=== PATIENT | female | born 1955 | race Caucasian/White ===

== ENCOUNTER 2020-01-23 11:55 | Inpatient (IN) | payer MEDICARE, SELFPAY ==
[2020-01-23] VITALS (28 sets, daily range): BP systolic 114–163; BP diastolic 62–103; PULSE 104–129; RESP 17–39; TEMP 35.9–36.5; O2SAT 78–100; BMI 24.5
--- NOTE | ~2020-01-23 | XR_ITS ---
EXAMINATION: XR chest 2V DATE: 01/25/2020 12:55 INDICATION: Right pleural effusion status post thoracentesis. TECHNIQUE: Frontal and lateral views of the chest were obtained. COMPARISON: Chest single view 01/23/2020 FINDINGS: There is a moderate-sized loculated right pleural effusion. There is mild scarring at right lung apex. There are airspace opacities in peripheral right mid and lower lung zones. No pneumothora x. The heart size is normal. There are changes of anterior fusion procedure in cervical spine. There are surgical clips in right neck. There is a calcified mass in right breast, likely benign. IMPRESSION: 1. Moderate-sized loculated right pleural effusion with improvement status post thoracentesis. 2. Peripheral airspace opacities in right mid and lower lung zones with interval improvement, consist ent with atelectasis versus pneumonia. Reviewed, dictated and finalized at location A. IMPRESSION: 1. Moderate-sized loculated right pleural effusion with improvement status post thoracentesis. 2. Peripheral airspace opacities in right mid and lower lung zones with interva l improvement, consistent with atelectasis versus pneumonia.
--- NOTE | ~2020-01-23 | XR_ITS ---
EXAMINATION: XR chest 1V portable EXAM DATE: 01/23/2020 17:00 INDICATION: Large right pleural effusion. Postthoracentesis. TECHNIQUE: Portable AP frontal chest x-ray was obtained. Comparison is made to prior examination from 01/23/2020. FINDINGS: There is a moderate-sized right-sided pleural effusion, improvement compared to exam earlie r same date. There is probable collapse of the right middle and lower lobes. The right upper lobe isaias ears better aerated. Left lung is clear. There is aortic arteriosclerosis. There is no pneumothorax s uspected. Cardiomediastinal silhouette is normal. There are mild bony degenerative changes. Cervical fusion hardware. IMPRESSION: 1. No evidence postprocedure pneumothorax. 2. Improvement in the moderate sized right pleural effusion with better aeration of right upper lobe . 3. Probable collapse of right middle and lower lobes. Reviewed, dictated and finalized at location A. IMPRESSION: 1. No evidence postprocedure pneumothorax. 2. Improvement in the moderate sized right pleural effusion with better aerati on of right upper lobe. 3. Probable collapse of right middle and lower lobes.
--- NOTE | ~2020-01-23 | US_ITS ---
EXAMINATION: US thoracentesis DATE: 01/25/2020 13:00 INDICATION: pleural effusion TECHNIQUE: The procedure and its risks, benefits, and alternatives were discussed with the patient. P otential risks discussed included bleeding, infection, and pneumothorax. The patient understood the r isks and agreed to proceed. The skin was prepped and draped in sterile fashion. 1% lidocaine was used for local anesthesia. Under ultrasound guidance, a 5 Fr catheter with trochar was advanced into the right pleural effusion. Fluid was aspirated. The catheter was removed, and a dressing was applied. Th ere were no immediate complications. FINDINGS: Ultrasound images demonstrate a right pleural effusion and the catheter within the fluid. IMPRESSION: 1. Successful ultrasound-guided thoracentesis yielding 1000 mL of serosanguineous fluid. Reviewed, dictated and finalized at location A. IMPRESSION: 1. Successful ultrasound-guided thoracentesis yielding 1000 mL of serosanguine ous fluid.
--- NOTE | ~2020-01-23 | US_ITS ---
EXAMINATION: US thoracentesis EXAM DATE: 01/23/2020 16:48 INDICATION: Right-sided thoracentesis. Large pleural effusion. TECHNIQUE: Timeout procedure was performed. I discussed the procedure, its risks and benefits with [facility] patient. Potential risks discussed included bleeding, infection, and pneumothorax which could poten tially require chest tube. Alternatives were also discussed. We discussed patient being on Plavix, rockwell d not taken it yesterday or today. I also discussed with Jody San PA-C, who discussed with [facility] junior systems administrator. The patient understood the risks, was given chance to ask questions, and agreed to p roceed. The skin was prepped and draped in sterile fashion. 1% lidocaine was used for local anesthesia. Under ultrasound guidance, a 5 Fr catheter with trochar was advanced into the right pleural effusion. Flui d was aspirated. After the 1 L was removed and a second jar hooked up, patient wanted to stop. She was not communicati ve about the reason or what was causing her discomfort. Pulse oximetry decreased to in 70s and her bl ood pressure increased and she was placed on 6 L oxygen. Then she became concerned about a missing pi nk ring, but otherwise did not appear distressed. We requested for her to relax and vitals then taken again, blood pressure 160/90 and pulse of 114, pulse ox is 94%. She was brought back to the emergenc y room and for postthoracentesis portable chest x-ray. Uncertain whether or not this could have been anxiety related event. FINDINGS: Ultrasound images demonstrate a right pleural effusion. IMPRESSION: Successful ultrasound-guided right-sided thoracentesis yielding approximately 1.3 L of dark yellow fluid after which procedure was stopped at patient's request as described above. Reviewed, dictated and finalized at location A. IMPRESSION: Successful ultrasound-guided right-sided thoracentesis yielding a pproximately 1.3 L of dark yellow fluid after which procedure was stopped at quirino nelson's request as described above.
--- NOTE | ~2020-01-23 | XR_ITS ---
EXAMINATION: XR chest 2V DATE: 01/27/2020 13:56 INDICATION: Right pleural effusion status post thoracentesis. TECHNIQUE: Frontal and lateral views of the chest were obtained. COMPARISON: Chest single view 01/26/2020 FINDINGS: There is a small loculated right pleural effusion. There are airspace opacities right mid a nd lower lung zones. No pneumothorax. The heart size is normal. There is a calcified mass in right br east, likely benign. There are changes of anterior fusion procedure in cervical spine. There are surg ical clips in right neck. IMPRESSION: 1. Small right pleural effusion with improvement status post thoracentesis. 2. Stable airspace opacities in right mid and lower lung zones, consistent with atelectasis versus pn eumonia. Reviewed, dictated and finalized at location A. IMPRESSION: 1. Small right pleural effusion with improvement status post thoracentesis. 2. Stable airspace opacities in right mid and lower lung zones, consistent with atelectasis versus pneumonia.
--- NOTE | ~2020-01-23 | XR_ITS ---
EXAMINATION: XR chest 2V DATE: 01/23/2020 13:23 INDICATION: Shortness of breath. TECHNIQUE: Frontal and lateral views of the chest were obtained. COMPARISON: Chest single view 07/26/2019 FINDINGS: There is a large right pleural effusion. There is near complete opacification of right neville thorax. There is mild scarring at left lung apex. There is a calcified mass in right anterior chest w all, likely benign. There are changes of anterior fusion procedure in cervical spine. There are surgi samia clips in right neck. IMPRESSION: 1. New large right pleural effusion. Reviewed, dictated and finalized at location A.
--- NOTE | ~2020-01-23 | XR_ITS ---
XR chest 1V portable DATE: 01/26/2020 10:22 INDICATION: Right pleural effusion follow-up TECHNIQUE: Portable upright AP chest on 01/26/2020 at 1014 hours COMPARISON: 01/25/2020 AP and lateral chest FINDINGS: There is no significant change of moderate right pleural effusion and right mid and lower l douglas infiltrate and/atelectasis since 01/25/2020. No pneumothorax. Aortic calcification. Normal heart size. No pulmonary vascular congestion. No left pleural effusion. The left lung is clear. Surgical clips overlie the lower right cervical area. Status post anterior lower cervical spine surgi samia fusion. Mild thoracic and lumbar scoliosis. Prominent calcifications are noted overlying the lower lateral right rib cage. Diffuse osteopenia. IMPRESSION: Stable moderate right pleural effusion and right mid and lower lung infiltrate and/or ate lectasis Reviewed, dictated and finalized at location A. IMPRESSION: Stable moderate right pleural effusion and right mid and lower lung infiltrate and/or atelectasis
--- NOTE | ~2020-01-23 | CT_ITS ---
EXAMINATION: CTA chest PE protocol DATE: 01/23/2020 13:48 INDICATION: Shortness of breath and elevated d-dimer TECHNIQUE: Computed tomography angiography (CTA) of the chest was performed with 100 mL Omnipaque-350 intravenous contrast timed to evaluate the pulmonary arteries. Coronal maximum intensity projection 3D-reconstructions were created by the technologist. The dose-length product (DLP) was 186.03 mGy-cm. Automated exposure control and iterative reconstruction technique were employed. COMPARISON: None. FINDINGS: The pulmonary arteries are well-opacified. There is no pulmonary embolism. There is a large right pleural effusion with atelectasis of much of the right lung. Pulmonary arteries in the affecte d segments of the lung are attenuated but do not demonstrate thrombosis. The heart size is normal. Th ere are no pathologically enlarged thoracic lymph nodes. No pneumothorax is identified. The left lung is clear. There is mild thoracic spondylosis. Changes of anterior fusion procedure are noted in the lower cervical spine. Calcifications in the right breast are consistent with treatment for breast can cer. IMPRESSION: 1. No pulmonary embolism. 2. Large right pleural effusion with widespread atelectasis throughout the right lung. Reviewed, dictated and finalized at location A. IMPRESSION: 1. No pulmonary embolism. 2. Large right pleural effusion with widespread atelectasis throughout the righ t lung.
--- NOTE | ~2020-01-23 | US_ITS ---
EXAMINATION: US thoracentesis DATE: 01/27/2020 15:42 INDICATION: pleural effusion TECHNIQUE: The procedure and its risks, benefits, and alternatives were discussed with the patient. P otential risks discussed included bleeding, infection, and pneumothorax. The patient understood the r isks and agreed to proceed. The skin was prepped and draped in sterile fashion. 1% lidocaine was used for local anesthesia. Under ultrasound guidance, a 5 Fr catheter with trochar was advanced into the right pleural effusion. Fluid was aspirated. The catheter was removed, and a dressing was applied. Th ere were no immediate complications. FINDINGS: Ultrasound images demonstrate a right pleural effusion and the catheter within the fluid. IMPRESSION: 1. Successful ultrasound-guided thoracentesis yielding 1000 mL of red fluid. Reviewed, dictated and finalized at location A.
--- NOTE | 2020-01-23 12:16 | ECG_ITS ---
Measurements Intervals [place] Rate: 122 P: 81 MS: 155 QRS: 52 QRSD: 86 T: 38 QT: 309 QTc: 441 Interpretive Statements SINUS TACHYCARDIA DELAYED PRECORDIAL R/S TRANSITION LOW QRS VOLTAGE IN PRECORDIAL LEADS BORDERLINE T WAVE ABNORMALITY- INF/LAT LEADS BASELINE ARTIFACT- III, AVR, AVL, AVF, V2, V5-V6 ABNORMAL ECG Electronically Signed On 01-23-2020 14:14:26 CDT by Camron Caballero D.O.
--- NOTE | 2020-01-23 12:33 | ED.SOB ---
HPI - SOB/Dyspnea General Chief Complaint: Shortness of Breath/Dyspnea <ALIDA Amin Last Filed: 01/23/20 16:51> Stated Complaint: sob <ALIDA Amin Last Filed: 01/23/20 16:51> Time Seen by Provider: 01/23/20 12:20 <ALIDA Amin Last Filed: 01/23/20 16:51> Source: patient <ALIDA Amin Last Filed: 01/23/20 16:51> Mode of arrival: wheelchair <ALIDA Amin Last Filed: 01/23/20 16:51> Limitations: no limitations <ALIDA Amin Last Filed: 01/23/20 16:51> History of Present Illness HPI Narrative: This is a 64 year old female that presents to the ER for shortness of breath x 3 weeks. Reports she was seen by her tug captain and started on prednisone and an antibiotic. Reports she finished this one week ago with little relief. Also reports a nonproductive cough. Reports some right sided back pain that is worse with breathing. Denies fever, sore throat or chest pain. <ALIDA Amin Last Filed: 01/23/20 16:51> Related Data Home Medications: Home Medications Medication Instructions Recorded Confirmed clopidogrel [Plavix] 75 mg PO EVERY OTHER DAY 07/20/19 01/23/20 hydrocodone-acetaminophen 1 tablet PO Q6H PRN 07/20/19 01/23/20 hydroxyzine HCl 25 mg PO TID PRN 07/20/19 01/23/20 propranolol 10 mg PO Q12H 07/20/19 01/23/20 spironolactone 100 mg PO QAM 07/20/19 01/23/20 baclofen 20 mg PO TID PRN 01/23/20 01/23/20 <ALIDA Amin Last Filed: 01/23/20 16:51> Allergies/Adverse Reactions: Allergies Allergy/AdvReac Type Severity Reaction Status Date / Time adhesive tape Allergy Unknown BLISTERS Verified 01/23/20 12:06 latex Allergy Blister Verified 01/23/20 12:06 <Jody San PA-C - Last Filed: 01/23/20 16:51> Review of Systems Review of Systems: Narrative: CONSTITUTIONAL: Denies fever ENT: Denies rhinorrhea, congestion, sore throat CARDIOVASCULAR: Denies chest pain RESPIRATORY: Reports cough and dyspnea. <Jody San PA-C - Last Filed: 01/23/20 16:51> All systems reviewed & are unremarkable except as noted in HPI and below <Jody San PA-C - Last Filed: 01/23/20 16:51> PMFSH Past Medical History Medical History: Medical History (Updated 01/23/20 @ 16:50 by Jody San PA-C) Anxiety Arthritis Back pain Back pain Breast cancer, left Cirrhosis Depression GI bleed Hepatitis C History of angina History of cancer chemotherapy Hx of radiation therapy Hyperlipemia Hypertension Left wrist fracture Skin cancer <Jody San PA-C - Last Filed: 01/23/20 16:51> Surgical History Surgical History: Surgical History History of cardiac catheterization History of hysterectomy History of tonsillectomy Hx of cervical spine surgery <Jody San PA-C - Last Filed: 01/23/20 16:51> Social History Social History: Social History (Updated 01/23/20 @ 11:31 by Faye Cruz) Smoking packs per day: 0.5 Smoking cigarettes per day: 10.0 Years smoked: 50 Smoking pack-years: 25.00 Smoking status: Current every day smoker Tobacco type: cigarettes Second hand tobacco smoke exposure: Yes Additional smoking assessment comments: Smoking exposure Alcohol intake: never Substance use: never Substance use type: does not use Gender identity (if verbalized by the patient): Female Spiritual care concerns: No Agree to blood products: Yes <Jody San PA-C - Last Filed: 01/23/20 16:51> Exam Narrative: Exam Narrative: GENERAL: Well-appearing, well-nourished, and in no acute distress. HEAD: Normocephalic, atraumatic. EYES: EOMI. ENT: Nares clear, no rhinorrhea or epistaxis. Mucous membranes moist. Oropharynx without tonsillar hypertrophy exudate or other lesions. Bilateral TMs pearly galvan non-bulging NECK: Supple. No adenopathy or masses. CHEST: No respiratory distress. M
[2020-01-23] MEDS: methylPREDNISolone SOD SUCC 125 MG VIAL IV PUSH (12:42)
[2020-01-23 12:57] LABS: Basophils Absolute Auto 0.1 K/mm3 (0.0-0.1); Basophils Percent Auto 0.7 % (0.2-1.2); Eosinophils Absolute Auto 0.1 K/mm3 (0-0.3); Eosinophils Percent Auto 0.7 % (0-4.4); Hematocrit 42.5 % (37.0-47.0); Hemoglobin 14.2 g/dL (12.0-15.0); Immature Granulocyte Absolute 0.11 K/mm3 (0.00-0.031); Immature Granulocyte Percent A 0.8 % (0-0.5); Lymphocytes Absolute Auto 1.25 K/mm3 (0.9-3.2); Mean Corpuscular HGB Conc 33.4 g/dl (32-36); Mean Corpuscular Hemoglobin 29.1 pg (26-34); Mean Corpuscular Volume 87.1 fl (80-100); Mean Platelet Volume 8.7 fl (7.4-10.4); Monocytes Absolute Auto 1.1 K/mm3 (0.1-0.6); Monocytes Percent Auto 7.5 % (2.6-8.5); Neutrophils Absolute Auto 11.3 K/mm3 (1.3-6.7); Neutrophils Percent Auto 81.3 % (45.5-73.1); Platelet Count Result 368 k/mm3 (150-375); Red Blood Count 4.88 M/mm3 (4.2-5.4); Red Cell Distribution Width 12.9 % (11.5-14.5); White Blood Count 13.9 K/mm3 (4.5-10.0)
[2020-01-23 13:01] LABS: Alveolar/Arterial O2 Gradient 43.4 mmHg; Base Excess ABG -2.3 mEq/l (+/-2.0); Carboxyhemoglobin 2.4 % THb (0-2.0); Device NASAL CANNULA; Fractional Inspired Oxygen 24 %; HCO3 ABG 21.2 mEq/l (22.0-26.0); Methemoglobin ABG 0.3 %THb (0-1.5); Oxygen Content ABG 18.4 %vol (16.0-22.0); Oxyhemoglobin 93.8 % THb (90.0-100.0); PO2 ABG 88.5 mmHg (80.0-100.0); PO2 FiO2 Ratio Arterial Blood 3.69 %; Reduced Hemoglobin 3.5 %THb (0-5.0); Site Drawn LEFT BRACHIAL; Total Hemoglobin 13.9 g/dL (12.0-18.0); pH ABG 7.426 (7.350-7.450)
--- NOTE | 2020-01-23 13:05 | PCRCNOTE ---
PT. DID NOT WANT THE INHALER; STATES SHE JUST USED HERS. R.N. AND THE P.Matthew. GUY QURESHI BOTH AWARE.
[2020-01-23 13:13] LABS: D Dimer 2.31 ug/mL (<0.48)
[2020-01-23 13:15] LABS: Alanine Aminotransferase 10 U/L (4-35); Albumin Level 3.9 g/dL (3.5-5.1); Alkaline Phosphatase 132 U/L (38-126); Aspartate Amino Transferase 22 U/L (14-36); Bilirubin,Total 0.5 mg/dL (0.2-1.3); Blood Urea Nitrogen 29 mg/dL (7-17); Calcium 9.8 mg/dL (8.4-10.2); Carbon Dioxide 26 mmol/L (22-30); Chloride 99 mmol/L (98-107); Estimated CRCL calculation 46 ml/min; Estimated Glomerular Filt Rate > 60; Glucose 108 mg/dL (65-105); Lactate Dehydrogenase 501 U/L (313-618); Potassium 4.6 mmol/L (3.4-5.0); Sodium 133 mmol/L (137-145)
[2020-01-23 13:32] LABS: CRP 17.7 mg/dL (<1.0)
[2020-01-23 13:44] LABS: Lactic Acid Reflex 1.9 mmol/L (0.7-2.1)
[2020-01-23 15:23] LABS: Partial Thromboplastin Time 33.7 SECONDS (22.3-36.8); Prothrombin Time 12.7 Seconds (11.1-14.7)
--- NOTE | 2020-01-23 15:38 | PC.NURSE ---
Pt resting with eyes closed and even rise and fall of chest with no distress noted.
[2020-01-23 16:30] LABS: pH Pleural Fluid 7.213 (7.210-7.500)
[2020-01-23 18:00] LABS: Pleural fluid source Pleural fluid
[2020-01-23 18:01] LABS: Appearance Pleural Fluid Hazy (Clear); Color Pleural Fluid Red (Colorless)
[2020-01-23 18:02] LABS: Lymphocytes Pleural Fluid 91 %; Macrophages Pleural Fluid 3 %; Neutrophils Pleural Fluid 6 % (0-25); Nucleated Cell Pleural Fluid 1554 /uL (0-1000); RBC Pleural Fluid 16605 /uL (0-0)
--- NOTE | 2020-01-23 18:57 | ADMGEN ---
This patient, Beverley Luna, was admitted to 2 Medical Room 259-01. Patient/family oriented to hospital policies and general routines including ID bracelet, bed and alarms, visiting hours, pain management, procedures, bathroom and other care routines, personal items, smoking policy, room service/diet, and visiting hours. Valuables list has been completed. Information on how to activate the Rapid Response Team has been discussed. Patient/Family are encouraged to report perceived risks to care and to ask questions if they do not understand what they are told or what they should do.
--- NOTE | 2020-01-23 19:30 | PC.NURSE ---
Home medications received from patient. Hydrocodone counted with Anh Coronel RN. Home medications locked in safe. Belonging sheet updated.
--- NOTE | 2020-01-23 21:32 | PM.IMHP ---
H&P: HPI History of Present Illness Chief complaint: Right pleural effusion Narrative: Beverley Luna is a 64 year old female who has a history of COPD. She has been following with her armed custom protection officer. It looks like her last office visit the armed custom protection officer was on 01/06/2020. The patient has been short of breath for 3 weeks. She was started on prednisone and antibiotics. She finished her antibiotics and prednisone without any relief. She has a nonproductive cough. She had some right-sided pain in her back was worse with breathing. Pulmonology has been consulted. The patient was having tachypnea and tachycardia upon arrival to the emergency room. Her O2 saturations were in the high 80s and low 90s on room air. She was placed on oxygen 2 L per nasal cannula and had some improvement. She has leukocytosis to 13.9 however the patient recently finished of steroids. CRP is 17.7. D-dimer was elevated so CTA chest was obtained. There was no pulmonary embolism. There is a large right pleural effusion and ervin bed atelectasis throughout the right lung. Thoracentesis was was performed after 1 L was removed and a 2nd are was hooked up the patient wanted to stop. The patient stated was causing her some discomfort. Her oxygen levels done in the 70s and her blood pressure crease she is placed on 6 L per nasal cannula. She was concerned about missing her peeing bring it. Also her home medications were locked up and she was not happy about that. Post thoracentesis there was no evidence of postprocedure pneumothorax. Improvement in the moderate size right pleural effusion with better aeration of right upper lobe. Probable collapse of right middle and lower lobes. When I went to see the patient she was very belligerent and cussing at me. She stated that enough people have already questioned her and obtained all the information. She has already told them about her health history and does not feel like she needs to discuss it again. She said that she was sleeping finally and that she did not want to be disturbed. She allowed me to physically environmental geologist but with the blanket over her head and did not want to talk to me any further. Patient was given an inhaler and given a dose of Solu-Medrol in the emergency room. Date of service 01/23/2020 she reported having some relief after 1 L of fluid was drained off of her lungs. She she has a history of lung nodules patient was noted to have malignant neoplasm of the left breast and was following up with oncology. A reviewed the radiation oncology note from August of last year and was read as malignant neoplasm of the lower lobe right bronchus or lung. It looks like she was getting radiation treatments. It was recommended that she follow-up with [address] I was not able to the question the patient further concerning her treatment issues being belligerent. Review of Systems Review of Systems: All systems reviewed & are unremarkable except as noted in HPI and below Constitutional: Constitutional: Reports as per HPI and Reports no additional constitutional complaints Eyes: Eyes: Reports as per HPI and Reports no additional eye complaints ENT: Reports system reviewed and no additional complaints, except as documented and Reports Normal hearing present Cardiovascular: Cardiovascular: Reports no additional cardiovascular complaints Respiratory: Respiratory: Reports no additional respiratory complaints and Reports no additional respiratory complaints Gastrointestinal: Gastrointestinal: Reports as per HPI and Reports no additional gastrointestinal complaints Musculoskeletal: Musculoskeletal: Reports no additional musculoskeletal complaints Integumentary/Breasts: Skin/Breast: Reports system reviewed and no additional complaints, except as docu and Reports as per HPI Neurologic: Reports system reviewed and no additional complaints, except as documented, Reports as per HPI and Reports Normal hearing present Psychiatr
[2020-01-23] MEDS: PROPRANOLOL HCL 10 MG TABLET PO (22:19)
[2020-01-23] MEDS: CLOPIDOGREL BISULFATE 75 MG TABLET PO (22:20)
[2020-01-24] VITALS (14 sets, daily range): BP systolic 118–141; BP diastolic 58–86; PULSE 66–102; RESP 12–21; TEMP 35.7–36.3; O2SAT 91–98
[2020-01-24 05:06] LABS: Basophils Percent Auto 0.1 % (0.2-1.2); Immature Granulocyte Absolute 0.11 K/mm3 (0.00-0.031); Lymphocytes Absolute Auto 0.95 K/mm3 (0.9-3.2); Lymphocytes Percent Auto 8.6 % (18.3-44.2); Mean Corpuscular HGB Conc 33.3 g/dl (32-36); Mean Corpuscular Volume 87.1 fl (80-100); Monocytes Absolute Auto 0.5 K/mm3 (0.1-0.6); Monocytes Percent Auto 4.1 % (2.6-8.5); Neutrophils Absolute Auto 9.6 K/mm3 (1.3-6.7); Neutrophils Percent Auto 86.2 % (45.5-73.1); Platelet Count Result 352 k/mm3 (150-375); Red Blood Count 4.48 M/mm3 (4.2-5.4); Red Cell Distribution Width 12.9 % (11.5-14.5); White Blood Count 11.1 K/mm3 (4.5-10.0)
[2020-01-24 05:20] LABS: Alanine Aminotransferase 10 U/L (4-35); Albumin Level 3.8 g/dL (3.5-5.1); Alkaline Phosphatase 131 U/L (38-126); Aspartate Amino Transferase 19 U/L (14-36); Bilirubin,Total 0.4 mg/dL (0.2-1.3); Blood Urea Nitrogen 30 mg/dL (7-17); Calcium 9.5 mg/dL (8.4-10.2); Carbon Dioxide 27 mmol/L (22-30); Chloride 101 mmol/L (98-107); Estimated CRCL calculation 41 ml/min; Estimated Glomerular Filt Rate > 60; Glucose 116 mg/dL (65-105); Magnesium 1.5 mg/dL (1.6-2.3); Potassium 5.4 mmol/L (3.4-5.0); Sodium 134 mmol/L (137-145)
[2020-01-24 06:21] LABS: Thyroid Stimulating Hormone Reflex 0.668 uIU/mL (0.465-4.68)
[2020-01-24] MEDS: SPIRONOLACTONE 50 MG TABLET 100 MG PO (08:31)
[2020-01-24] MEDS: PROPRANOLOL HCL 10 MG TABLET PO ×2 (08:31→20:11)
[2020-01-24] MEDS: hydrOXYzine HCL 25 MG TABLET PO (08:32)
[2020-01-24] MEDS: MAGNESIUM SULFATE 3GM/D5W100ML 3 GM/100 ML BAG IVPB (10:42)
[2020-01-24] MEDS: ALBUTEROL SULFATE (*SP) AEROSOL 1 PUFF 2 PUFF INHALATION (13:11)
[2020-01-24 13:54] LABS: Magnesium 2.7 mg/dL (1.6-2.3); Potassium 4.6 mmol/L (3.4-5.0)
--- NOTE | 2020-01-24 15:53 | PHAR ---
The patient's home med of Umeclidinium-Vilanterol [Anoro Ellipta] 62.5MCG/25 MCG has been verified.
--- NOTE | 2020-01-24 18:13 | PM.CNPUL ---
Assessment and Plan Assessment and plan (1) Pleural effusion: Code(s): J90 - Pleural effusion, not elsewhere classified Status: Acute Assessment and Plan: Large volume bloody lymphocytic effusion on the right side, along with presumed lung cancer. THe may be a malignant effusion, and would change her lung cancer staging. and she has been receiving radiation. She had 1.3 L removed feels better and still has significant fluid remaining. She may benefit symptomatically by having another thoracentesis. In addition this may improve the ability to visualize the lower lung potter. With the large amount of remaining pleural effusion, the right lower lung is not easy to evaluate. (2) Respiratory failure: Code(s): J96.90 - Respiratory failure, unspecified, unspecified whether with hypoxia or hypercapnia Status: Acute Assessment and Plan: Acute on chronic, using O2 at home. (3) Cancer of right lung: Code(s): C34.91 - Malignant neoplasm of unspecified part of right bronchus or lung Status: Acute Assessment and Plan: T1N0M0 RLL nodule, has received radiation (4) Anxiety: Code(s): F41.9 - Anxiety disorder, unspecified Status: Acute Assessment and Plan: Vicky si extremely anxious; not on meds currently, as she had serotonin syndrome 2019 was hospitalized. She has tolerated Xanax in the past. Will restart 0.5 mg q.i.d. p.r.n.. (5) Tobacco abuse: Code(s): Z72.0 - Tobacco use Status: Acute Assessment and Plan: smoking at this admission History of Present Illness History of Present Illness Consult date: 01/25/20 Requesting physician: Caryn Mc PA-C Reason for consult: pleural effusion Chief complaint: Right pleural effusion Narrative: NEW CONSULT: progressive shortness of breath, right pleural effusion; Caryn Mc PA-C Beverley Luna is a 64 yo female followed in our practice, last visit was 10/26/2019 for COPD and lung nodules. I was consulted to see her for a right pleural effusion. This was tapped with 1.3 L of bloody lymphocytic fluid removed January 22, and the patient asked for the procedure to stop. She is being treated at [facility] in [place], Dr. Monroe, for T1a N0 M0 carcinoma RLL, not an operative candidate and has been receiving radiation, received 20 radiation treatments. Last appointment in our office was Oct 26. She called January 05, with increased shortness of breath, cough, no fever or chills. Was prescribed pred taper and antibiotics, then continued to have symptoms, prescribed a repeat round. January [address] Randle, was a direct admit. She also has had pain in the right posterior chest recently, improved since the thoracentesis. She has lost 13-15 lb in the last few months, no change in appetite. Review of Systems Constitutional: Constitutional: Denies body ache(s) and Denies chills ENT: Reports nasal congestion (seasonal allergies) Cardiovascular: Cardiovascular: Denies chest pain, Denies pedal edema and Denies leg edema Respiratory: Respiratory: Denies hemoptysis Gastrointestinal: Gastrointestinal: Denies abdominal pain PMFSH Past Medical History Medical History (Updated 01/25/20 @ 09:58 by Tamiko Hu MD) Anxiety Arthritis Back pain Back pain Breast cancer, left Cirrhosis Depression GI bleed Hepatitis C History of angina History of cancer chemotherapy Hx of radiation therapy Hyperlipemia Hypertension Left wrist fracture Lung cancer T1N0M0 RLL, /s/p 20 XRT [place] in 2019 No biopsy, presumed Skin cancer Surgical History Surgical History (Updated 01/23/20 @ 21:41 by Molly Cabrera NP) History of cardiac catheterization History of hysterectomy History of tonsillectomy Hx of cervical spine surgery S/P thoracentesis Today 01/23/2020 little lower 1 L was removed. Family History Family History Father Acute myocardial infarction
--- NOTE | 2020-01-24 18:34 | PM.IMPN ---
Progress Note: A&P Assessment and Plan (1) Pleural effusion: Code(s): J90 - Pleural effusion, not elsewhere classified Status: Acute Assessment and Plan: Patient was having shortness of breath for a few weeks and was found to have a large right pleural effusion. She had a thoracentesis completed on 01/23/2020 that remove 1.3 L of fluid that appeared to be in nature. The patient. The procedure due to being uncomfortable. Thoracentesis labs showed red, hazy fluid with a pH of 7.213, elevated RBCs at 16,605, elevated nucleated cells at 15,54. Lymphocytes are elevated at 91% We are still pending the total protein, albumin, LDH and glucose levels of the pleural fluid. I discussed the patient with Dr. Hu who was about to go see her in consult. She believes based on her history of lung cancer diagnosis in July 2019 and with the findings of her thoracentesis this is most likely malignant nature. I am going to request her oncology paperwork from [facility] to get a better understanding of her underlying diagnosis and treatment plan. The patient states she went through 15 radiation treatments on her lung nodule and that they were just going to follow-up with repeat CT scans every 3 months. She states her last CT scan was November 2019. Will continue monitoring the patient's symptoms and talk with pulmonology about further plan when she evaluates her. (2) Respiratory failure: Code(s): J96.90 - Respiratory failure, unspecified, unspecified whether with hypoxia or hypercapnia Status: Acute Assessment and Plan: The patient was admitted and found to be hypoxic. She was placed on oxygen then after her thoracentesis she was taken off oxygen. She is not resting comfortably on room air with a pulse ox of 95%. She does report feeling slightly more short of breath this evening. Will discuss with pulmonology about the planned to see if we need another thoracentesis. Continue monitoring patient's symptoms and use oxygen as necessary for hypoxia less than 90%. (3) Cancer of right lung: Code(s): C34.91 - Malignant neoplasm of unspecified part of right bronchus or lung Status: Acute Assessment and Plan: Please see the notes from her oncologist's it looks like on 08/22/2019 from [facility]. According to the records that shows malignant neoplasm of the lower lobe right bronchus or lung. Malignant neoplasm of unspecified site of right female breast. Patient will need to follow-up with her oncologist. (4) Depression: Code(s): F32.9 - Major depressive disorder, single episode, unspecified Status: Chronic Assessment and Plan: Of serotonin syndrome in the past. I am not seeing where she is on any medication at this time. (5) Anxiety: Code(s): F41.9 - Anxiety disorder, unspecified Status: Acute Assessment and Plan: She is on hydroxyzine. (6) Essential hypertension: Code(s): I10 - Essential (primary) hypertension Status: Chronic Assessment and Plan: She is on propranolol and spironolactone. Blood pressure this morning was 141/86. Will continue with home medications at this time. Time Spent With Patient Time with patient: 25 - 35 minutes Subjective Date/time seen: 01/24/20 18:34 Interval history: Date of service 01/24/2020: The patient states after she had a thoracentesis yesterday her breathing has improved. But now she states is getting slightly worse again. She states whenever she takes a deep breath she begins to cough which is not normal for her. She reports she has some pain when she lays on her right side. Sh
[2020-01-24] MEDS: ALPRAZOLAM 0.5 MG TABLET PO (19:30)
[2020-01-24] MEDS: PANTOPRAZOLE 40 MG TABLET PO (20:12)
[2020-01-25] VITALS (16 sets, daily range): BP systolic 121–143; BP diastolic 56–77; PULSE 58–89; RESP 16–20; TEMP 36.1–36.3; O2SAT 90–95
[2020-01-25 05:21] LABS: Blood Urea Nitrogen 31 mg/dL (7-17); Carbon Dioxide 28 mmol/L (22-30); Chloride 100 mmol/L (98-107); Estimated CRCL calculation 37 ml/min; Estimated Glomerular Filt Rate 56; Glucose 97 mg/dL (65-105); Magnesium 1.8 mg/dL (1.6-2.3); Potassium 4.5 mmol/L (3.4-5.0); Sodium 133 mmol/L (137-145)
[2020-01-25 05:25] LABS: Basophils Percent Auto 0.1 % (0.2-1.2); Eosinophils Absolute Auto 0.1 K/mm3 (0-0.3); Eosinophils Percent Auto 0.5 % (0-4.4); Hemoglobin 11.8 g/dL (12.0-15.0); Immature Granulocyte Absolute 0.14 K/mm3 (0.00-0.031); Immature Granulocyte Percent A 0.9 % (0-0.5); Lymphocytes Absolute Auto 1.65 K/mm3 (0.9-3.2); Lymphocytes Percent Auto 10.4 % (18.3-44.2); Mean Corpuscular HGB Conc 33.7 g/dl (32-36); Mean Corpuscular Hemoglobin 28.6 pg (26-34); Mean Platelet Volume 8.6 fl (7.4-10.4); Monocytes Absolute Auto 1.1 K/mm3 (0.1-0.6); Monocytes Percent Auto 6.7 % (2.6-8.5); Neutrophils Absolute Auto 12.8 K/mm3 (1.3-6.7); Neutrophils Percent Auto 81.4 % (45.5-73.1); Platelet Count Result 357 k/mm3 (150-375); Red Blood Count 4.12 M/mm3 (4.2-5.4); Red Cell Distribution Width 12.8 % (11.5-14.5); White Blood Count 15.8 K/mm3 (4.5-10.0)
[2020-01-25] MEDS: PANTOPRAZOLE 40 MG TABLET PO (08:45)
[2020-01-25] MEDS: PROPRANOLOL HCL 10 MG TABLET PO ×2 (08:45→20:25)
[2020-01-25] MEDS: SPIRONOLACTONE 50 MG TABLET 100 MG PO (08:46)
[2020-01-25] MEDS: ALPRAZOLAM 0.5 MG TABLET PO ×3 (08:47→20:25)
--- NOTE | 2020-01-25 12:26 | PC.NURSE ---
To ultrasound via wheelchair with transporting
--- NOTE | 2020-01-25 13:17 | PC.NURSE ---
Patient returned from ultrasound via wheelchair with transporter. Settled into bed. Denies pain or discomfort. Bandaid D/I to right upper back. O2 on at 2 liters per nasal cannula. VSS.
--- NOTE | 2020-01-25 15:37 | PM.PNPUL ---
Progress Note: A&P Assessment and Plan (1) Pleural effusion: Code(s): J90 - Pleural effusion, not elsewhere classified Status: Acute Assessment and Plan: Large volume bloody lymphocytic effusion on the right side, along with presumed lung cancer. This might be may be a malignant effusion, and would change her lung cancer staging. She has been receiving radiation. She had 1.3 L removed January 22 and 1 L January 24, cytology is pending. She has a history of breast cancer, so met breast is a less likely cause for this. (2) Respiratory failure: Code(s): J96.90 - Respiratory failure, unspecified, unspecified whether with hypoxia or hypercapnia Status: Acute Assessment and Plan: Acute on chronic, now on 2 L/min saturation is 91%. Improved. She is on O2 at home, needs home O2 evaluation before going home. (3) Cancer of right lung: Code(s): C34.91 - Malignant neoplasm of unspecified part of right bronchus or lung Status: Acute Assessment and Plan: T1N0M0 RLL nodule, has received radiation, followed by Dr Luan Monroe, non-small cell, (presumed) radiation oncologist at [place], [place]. She does not have an oncologist, will need to have oncologist lined up prior to discharge. Dr Sanjay Pena is on staff there, and will be contacted. (4) Anxiety: Code(s): F41.9 - Anxiety disorder, unspecified Status: Acute Assessment and Plan: She is extremely anxious; was not on meds at admission, as she had serotonin syndrome 2019 was hospitalized. She has tolerated Xanax in the past. This was restarted 0.5 mg q.i.d. p.r.n.. (5) Tobacco abuse: Code(s): Z72.0 - Tobacco use Status: Acute Assessment and Plan: smoking at this admission; stopping is essential Subjective Date/time seen: 01/25/20 15:37 Interval history: Beverley Luna is a 64 yo female seen in follow up for shortness of breath due to a large right pleural effusion with a repeat thoracentesis today. She coughs with taking a deep breath. She denies fever, hemoptysis, abdominal pain, nausea, vomiting, or headache. She feels better now, several hours after the second thoracentesis with a liter removed today. discussed with DENISE Kebede. Review of Systems Constitutional: Constitutional: Denies chills Comments: She is tearful. ENT: Reports nasal congestion (seasonal allergies) Cardiovascular: Cardiovascular: Denies chest pain, Denies pedal edema and Denies leg edema Gastrointestinal: Gastrointestinal: Denies abdominal pain Exam Const: General: no acute distress HENMT: Mouth: Yes moist mucous membranes Eyes: General: appearance normal, both eyes and all related structures Neck: Neck: no JVD Resp: Other: improved breath sounds right lower lung field with increased aeration Cardio: Rate: regular rate Rhythm: regular rhythm Skin: General skin exam: normal color Extrem: General: no clubbing, cyanosis or edema Objective Data Vital Signs Vital Signs: Vital Signs - 24 hr 01/24/20 16:00 01/24/20 20:00 01/24/20 20:11 Temperature Pulse Rate 72 82 80 Respiratory Rate Blood Pressure Pulse Oximetry 01/24/20 22:00 01/25/20 00:00 01/25/20 04:00 Temperature 36.3 C L Pulse Rate 73 63 58 L Respiratory Rate 18 Blood Pressure 128/71 Pulse Oximetry 92 01/25/20 06:00 01/25/20 08:00 01/25/20 08:45 Temperature 36.2 C L Pulse Rate 76 77 77 Respiratory Rate 20 Blood Pressure 143/70 H Pulse Oximetry 90 01/25/20 12:00 01/25/20 12:53 01/25/20 12:55 Temperature Pulse Rate 60 77 69 Respiratory Rate 20 20 Blo
--- NOTE | 2020-01-25 18:39 | PM.IMPN ---
Progress Note: A&P Assessment and Plan (1) Pleural effusion: Code(s): J90 - Pleural effusion, not elsewhere classified Status: Acute Assessment and Plan: Patient was having shortness of breath for a few weeks and was found to have a large right pleural effusion. She had a thoracentesis completed on 01/23/2020 that remove 1.3 L of fluid that appeared to be in nature. The patient. The procedure due to being uncomfortable. Thoracentesis labs showed red, hazy fluid with a pH of 7.213, elevated RBCs at 16,605, elevated nucleated cells at 15,54. Lymphocytes are elevated at 91% We are still pending the total protein, albumin, LDH and glucose levels of the pleural fluid. I discussed the patient with Dr. Hu who evaluated her in consult. We performed a 2nd thoracentesis today which removed another 1 L of fluid. I called the patient's radiation oncologist Dr Monroe at [facility] who knows the patient but states she does not currently have an oncologist to follow up with. The patient will stay overnight and in the morning I will call an oncologist to try and set up an appointment within the next few days so she can follow-up and developed a further plan in case her fluid continues to recur and she will need more thoracentesis is or need to see a thoracic surgeon. The patient had a diagnosis of non-small cell lung cancer and she followed up with a thoracic surgeon that stated she was not a surgical candidate. At that time her nodule was a T1N0M0 RLL nodule. Will continue monitoring the patient's symptoms and talk with pulmonology about further plan when she evaluates her. (2) Respiratory failure: Code(s): J96.90 - Respiratory failure, unspecified, unspecified whether with hypoxia or hypercapnia Status: Acute Assessment and Plan: The patient was admitted and found to be hypoxic. She was placed on oxygen then after her thoracentesis she was taken off oxygen. She is not resting comfortably on room air with a pulse ox of 94%. She is feeling better after thoracentesis. Continue monitoring patient's symptoms and use oxygen as necessary for hypoxia less than 90%. (3) Cancer of right lung: Code(s): C34.91 - Malignant neoplasm of unspecified part of right bronchus or lung Status: Acute Assessment and Plan: Please see the notes from her oncologist's it looks like on 08/22/2019 from [facility] Rad[facility]cology. According to the records that shows malignant neoplasm of the lower lobe right bronchus or lung. Malignant neoplasm of unspecified site of right female breast. Patient will need to follow-up with her oncologist. Will call Oncologist tomorrow about need for follow up and importance of a visit soon after discharge. (4) Depression: Code(s): F32.9 - Major depressive disorder, single episode, unspecified Status: Chronic Assessment and Plan: Of serotonin syndrome in the past. I am not seeing where she is on any medication at this time. (5) Anxiety: Code(s): F41.9 - Anxiety disorder, unspecified Status: Acute Assessment and Plan: She is on hydroxyzine. (6) Essential hypertension: Code(s): I10 - Essential (primary) hypertension Status: Chronic Assessment and Plan: She is on propranolol and spironolactone. Blood pressure this morning was 121/70. Will continue with home medications at this time. Time Spent With Patient Time with patient: 25 - 35 minutes Subjective Date/time seen: 01/25/20 18:39 Interval history: Date of service 01/25/2020: The patient states after she had a thoracentesis again today her breathing has improve
[2020-01-25] MEDS: CLOPIDOGREL BISULFATE 75 MG TABLET PO (20:25)
[2020-01-25] MEDS: ALBUTEROL SULFATE (*SP) AEROSOL 1 PUFF 2 PUFF INHALATION (22:32)
[2020-01-26] VITALS (7 sets, daily range): BP systolic 117–130; BP diastolic 63–72; PULSE 66–74; RESP 22; TEMP 36.3–36.4; O2SAT 95
[2020-01-26 06:25] LABS: Basophils Absolute Auto 0.1 K/mm3 (0.0-0.1); Basophils Percent Auto 0.6 % (0.2-1.2); Eosinophils Absolute Auto 0.2 K/mm3 (0-0.3); Eosinophils Percent Auto 1.3 % (0-4.4); Hematocrit 37.5 % (37.0-47.0); Hemoglobin 12.5 g/dL (12.0-15.0); Immature Granulocyte Absolute 0.07 K/mm3 (0.00-0.031); Immature Granulocyte Percent A 0.6 % (0-0.5); Lymphocytes Absolute Auto 1.85 K/mm3 (0.9-3.2); Lymphocytes Percent Auto 16.1 % (18.3-44.2); Mean Corpuscular HGB Conc 33.3 g/dl (32-36); Mean Corpuscular Hemoglobin 28.5 pg (26-34); Mean Corpuscular Volume 85.4 fl (80-100); Mean Platelet Volume 8.4 fl (7.4-10.4); Monocytes Absolute Auto 0.9 K/mm3 (0.1-0.6); Monocytes Percent Auto 8.1 % (2.6-8.5); Neutrophils Absolute Auto 8.5 K/mm3 (1.3-6.7); Neutrophils Percent Auto 73.3 % (45.5-73.1); Platelet Count Result 326 k/mm3 (150-375); Red Blood Count 4.39 M/mm3 (4.2-5.4); Red Cell Distribution Width 12.7 % (11.5-14.5); White Blood Count 11.5 K/mm3 (4.5-10.0)
[2020-01-26 06:38] LABS: Blood Urea Nitrogen 25 mg/dL (7-17); Carbon Dioxide 26 mmol/L (22-30); Chloride 98 mmol/L (98-107); Estimated CRCL calculation 41 ml/min; Estimated Glomerular Filt Rate > 60; Glucose 107 mg/dL (65-105); Magnesium 1.4 mg/dL (1.6-2.3); Potassium 4.3 mmol/L (3.4-5.0); Sodium 131 mmol/L (137-145)
[2020-01-26] MEDS: SPIRONOLACTONE 50 MG TABLET 100 MG PO (09:57)
[2020-01-26] MEDS: PROPRANOLOL HCL 10 MG TABLET PO ×2 (09:57→21:05)
[2020-01-26] MEDS: PANTOPRAZOLE 40 MG TABLET PO (09:58)
[2020-01-26] MEDS: ALPRAZOLAM 0.5 MG TABLET PO (10:18)
--- NOTE | 2020-01-26 10:19 | PM.PNPUL ---
Progress Note: A&P Assessment and Plan (1) Pleural effusion: Code(s): J90 - Pleural effusion, not elsewhere classified Status: Acute Assessment and Plan: Lymphocitic Pleural Effusion.Highly suspcious for malignancy, lung or breast. - recommend serial large volume thoracentesis checking for cytology up to three, 24-48 hours appart. - if cytology is negative on third thoracentesis, would recommend urgent referral to her Thoracic Surgeon in [place] for VATS evulation and pleural biopsies - malignant effusion will change her staging and management - will order pleural fluid trigylcerides, TB Quantiferon GOLD test and serum RF to r/o other causes. - patient was informed of the plan. Subjective Date/time seen: 01/26/20 10:19 Interval history: Pt was angry and tearful this morning. She says she was told her effusion was malignant but I informed her that the complete results are not back and the pleural fluid has not reported malignancy cells yet although we are highly suspicious. She has second thoracentesis yesterday, CXR yesterday still showed moderate sized persistent pleural effusion with compressive atelectasis. She has no known history of TB or exposure to TB. She denies productive cough or hemoptysis. She is much less short of breath than admission but still a bit short of breath on exertion Review of Systems Review of Systems: All systems reviewed & are unremarkable except as noted in HPI and below Exam Const: General: comfortable and no acute distress HENMT: Mouth: Yes moist mucous membranes Neck: Neck: no JVD Resp: Auscultation: crackles on the right and diminished lung sounds on the right Cardio: Rate: regular rate Rhythm: regular rhythm Other: dullness to percussion on the right up to mid lung field GI: Auscultation: normal bowel sounds Neuro: Cognition (Neuro): normal cognition Speech: normal speech Extrem: General: normal to inspection and no edema Psych: Affect: Sad affect present and Anxious affect present Thought content: Yes Depressive thoughts present Objective Data Vital Signs Vital Signs: Vital Signs - 24 hr 01/25/20 12:00 01/25/20 12:53 01/25/20 12:55 Temperature Pulse Rate 60 77 69 Respiratory Rate 20 20 Blood Pressure 139/77 133/74 Pulse Oximetry 94 91 01/25/20 13:18 01/25/20 15:20 01/25/20 16:00 Temperature 36.1 C L Pulse Rate 68 74 76 Respiratory Rate 20 16 Blood Pressure 121/70 125/72 Pulse Oximetry 94 01/25/20 20:00 01/25/20 20:25 01/25/20 22:16 Temperature 36.3 C L Pulse Rate 83 89 69 Respiratory Rate 18 Blood Pressure 135/56 L Pulse Oximetry 90 01/25/20 22:32 01/25/20 22:35 01/26/20 00:00 Temperature Pulse Rate 69 66 Respiratory Rate 18 Blood Pressure Pulse Oximetry 95 01/26/20 04:00 01/26/20 09:57 Temperature Pulse Rate 74 74 Respiratory Rate Blood Pressure Pulse Oximetry Intake/Output Intake/Output: Intake & Output 01/23/20 01/24/20 01/25/20 01/26/20 23:59 23:59 23:59 23:59 Intake Total 1840 810 650 Output Total 1250 1000 1600 600 Balance -1250 840 -790 50 Meds/Results Medications: Active Medications Generic Name Dose Route Start Last Admin Trade Name Freq PRN Reason Stop Dose Admin Hydrocodone Bitart/Acetaminophen 1 tab 01/23/20 21:31 01/26/20 09:58 Collins 10-325 Mg PO 1 tab Q6H PRN Administration Pain (Scale Score 4-6) Albuterol 2 puff 01/23/20 21:31 01/25/20 22:32 Proventil Hfa INHALATION 2 puff QID PRN Administration Shortness Of Breath Alprazolam 0.5 mg 01/24/20 19:06 01/26/20 10:18 Xanax PO 0.5 mg QID PRN Administration Anxiety Baclofen 20 mg 01/23/20 21:31 Lioresal Po PO TID PRN Spasms Clopidogrel Bisulfate 75 mg 01/23/20 21:00 01/25/20 20:25 Plavix PO 75 mg Q48H IVORY Administration Hydroxyzine HCl 25 mg 01/23/20 21:59 01/24/20 08:32 Atarax Tablet PO 25 mg Q8H PRN Admin
[2020-01-26] MEDS: MAGNESIUM SULFATE 3GM/D5W100ML 3 GM/100 ML BAG IVPB (10:55)
--- NOTE | 2020-01-26 11:58 | PM.IMPN ---
Progress Note: A&P Assessment and Plan (1) Pleural effusion: Code(s): J90 - Pleural effusion, not elsewhere classified Status: Acute Assessment and Plan: Patient was having shortness of breath for a few weeks and was found to have a large right pleural effusion. She had a thoracentesis completed on 01/23/2020 that remove 1.3 L of fluid that appeared to be in nature. -->Thoracentesis labs showed red, hazy fluid with a pH of 7.213, elevated RBCs at 16,605, elevated nucleated cells at 15,54. Lymphocytes are elevated at 91% We are still pending the total protein, albumin, LDH, triglycerides and glucose levels of the pleural fluid. She had a 2nd thoracentesis on 01/25/2020 and removed 1 L of fluid and we have ordered a cytology and cell count on this fluid which is still pending. I talked to Dr. Farris-power electronics engineer working for Dr. Hu today who states he recommends completing 3 different thoracentesis and monitoring her cytology and cell count to look for any suspicious cancer cells prior to her being discharged. I called the patient's radiation oncologist Dr Monroe at [facility] who knows the patient but states she does not currently have an oncologist to follow up with. I called Dr. Pena Oncologist at [facility] who can get the patient in for evaluation on Wednesday 01/31 at 11:45 a.m.. Have at I wrong thing ever had a bile leak The patient understands and agrees with the plan for follow-up. The patient had a diagnosis of non-small cell lung cancer and she followed up with a thoracic surgeon that stated she was not a surgical candidate. At that time her nodule was a T1N0M0 RLL nodule. Will continue monitoring the patient's symptoms and talk with pulmonology about further plan when she evaluates her. (2) Respiratory failure: Code(s): J96.90 - Respiratory failure, unspecified, unspecified whether with hypoxia or hypercapnia Status: Acute Assessment and Plan: The patient was admitted and found to be hypoxic. She was placed on oxygen then after her thoracentesis she was taken off oxygen. She is not resting comfortably on room air with a pulse ox of 95%. She is feeling better after 2nd thoracentesis. Continue monitoring patient's symptoms and use oxygen as necessary for hypoxia less than 90%. (3) Cancer of right lung: Code(s): C34.91 - Malignant neoplasm of unspecified part of right bronchus or lung Status: Acute Assessment and Plan: Please see the notes from her oncologist's it looks like on 08/22/2019 from [facility] Radiology [facility]cology. According to the records that shows malignant neoplasm of the lower lobe right bronchus or lung. Malignant neoplasm of unspecified site of right female breast. Patient will need to follow-up with her oncologist. We have an appointment with Dr. Pena oncologist on Thursday02/01/2020 (4) Depression: Code(s): F32.9 - Major depressive disorder, single episode, unspecified Status: Chronic Assessment and Plan: Of serotonin syndrome in the past. I am not seeing where she is on any medication at this time. (5) Anxiety: Code(s): F41.9 - Anxiety disorder, unspecified Status: Acute Assessment and Plan: She is on hydroxyzine. (6) Essential hypertension: Code(s): I10 - Essential (primary) hypertension Status: Chronic Assessment and Plan: She is on propranolol and spironolactone. Blood pressure this morning was 135/56 Will continue with home medications at this time. Time Spent With Patient Time with patient: 25 - 35 minutes Subjective Date/time seen: 01/26/20 11:58 Interval
[2020-01-26 14:53] LABS: Rheumatoid Factor < 8.6 IU/ML (<12)
[2020-01-26] MEDS: ALBUTEROL SULFATE (*SP) AEROSOL 1 PUFF 2 PUFF INHALATION (19:41)
[2020-01-27 04:38] LABS: Glucose Pleural Fluid 43 mg/dL; Total Protein Pleural Fluid 3.6 g/dL
[2020-01-27 06:00] VITALS: BP 132/70; PULSE 81; RESP 18; TEMP 36.1; O2SAT 94
--- NOTE | 2020-01-27 07:45 | PC.NURSE ---
Faxed Flow Cytometry to Dr. Randle.
[2020-01-27 08:49] VITALS: PULSE 88
[2020-01-27] MEDS: PROPRANOLOL HCL 10 MG TABLET PO (08:49)
[2020-01-27] MEDS: PANTOPRAZOLE 40 MG TABLET PO (08:49)
[2020-01-27] MEDS: MAGNESIUM OXIDE 400 MG TABLET PO (08:49)
[2020-01-27 09:23] VITALS: O2SAT 95
[2020-01-27 09:23] LABS: Hemoglobin 12.4 g/dL (12.0-15.0); Mean Corpuscular HGB Conc 33.5 g/dl (32-36); Mean Corpuscular Hemoglobin 28.5 pg (26-34); Mean Corpuscular Volume 85.1 fl (80-100); Mean Platelet Volume 8.6 fl (7.4-10.4); Platelet Count Result 326 k/mm3 (150-375); Red Blood Count 4.35 M/mm3 (4.2-5.4); Red Cell Distribution Width 12.5 % (11.5-14.5); White Blood Count 10.2 K/mm3 (4.5-10.0)
[2020-01-27 09:28] VITALS: BP 131/62; PULSE 74; RESP 16; TEMP 36.8; O2SAT 92
[2020-01-27 09:36] LABS: Blood Urea Nitrogen 23 mg/dL (7-17); Calcium 8.7 mg/dL (8.4-10.2); Carbon Dioxide 29 mmol/L (22-30); Chloride 97 mmol/L (98-107); Estimated CRCL calculation 37 ml/min; Estimated Glomerular Filt Rate 56; Glucose 115 mg/dL (65-105); Magnesium 1.6 mg/dL (1.6-2.3); Potassium 3.8 mmol/L (3.4-5.0); Sodium 130 mmol/L (137-145)
[2020-01-27] MEDS: ALPRAZOLAM 0.5 MG TABLET PO (11:55)
--- NOTE | 2020-01-27 12:10 | PM.PNPUL ---
Progress Note: A&P Assessment and Plan (1) Pleural effusion: Code(s): J90 - Pleural effusion, not elsewhere classified Status: Acute Assessment and Plan: Lymphocitic Pleural Effusion.Highly suspcious for malignancy, lung or breast. - Cytologogy X 1 is negative from 01/23, 01/25 is pending. - Flow Cytometry is negative for Lymphoma which would have been a rare presentation. - malignant effusion will change her staging and management - pleural fluid trigylcerides, TB Quantiferon GOLD test are pending. RF negative - patient was informed of the plan. Would recommend repeating large volume thoracentesis today and can be discharged home after thoracentesis from Pulmonary perspective. She needs referral back to Throacic Surgery for VATS to look for malignancy. Subjective Date/time seen: 01/27/20 12:10 Interval history: Pt is doing well, no dyspnea complaints. Sleeping in bed most of the time but complains of lower back pain which is chronic. Cytolog is negative from 01/23 pleural effusion and pending from 01/25. She still had a moderate sized pleural effusion on CXR yesterday Review of Systems Review of Systems: All systems reviewed & are unremarkable except as noted in HPI and below Exam Const: General: comfortable and no acute distress HENMT: Mouth: Yes moist mucous membranes Neck: Neck: no JVD Resp: Auscultation: crackles on the right and diminished lung sounds on the right Cardio: Rate: regular rate Rhythm: regular rhythm Other: dullness to percussion on the right up to mid lung field GI: Auscultation: normal bowel sounds Neuro: Cognition (Neuro): normal cognition Speech: normal speech Extrem: General: normal to inspection and no edema Psych: Affect: Sad affect present and Anxious affect present Thought content: Yes Depressive thoughts present Objective Data Vital Signs Vital Signs: Vital Signs - 24 hr 01/26/20 14:00 01/26/20 19:44 01/26/20 21:05 Temperature 36.3 C L Pulse Rate 73 74 Respiratory Rate 22 H Blood Pressure 130/72 Pulse Oximetry 95 95 01/26/20 22:00 01/27/20 06:00 01/27/20 08:49 Temperature 36.4 C 36.1 C L Pulse Rate 74 81 88 Respiratory Rate 22 H 18 Blood Pressure 117/63 132/70 Pulse Oximetry 95 94 01/27/20 09:23 Temperature Pulse Rate Respiratory Rate Blood Pressure Pulse Oximetry 95 Intake/Output Intake/Output: Intake & Output 01/24/20 01/25/20 01/26/20 01/27/20 23:59 23:59 23:59 23:59 Intake Total 5311 435 3364 530 Output Total 1000 1600 1400 Balance 840 -790 290 530 Meds/Results Medications: Active Medications Generic Name Dose Route Start Last Admin Trade Name Freq PRN Reason Stop Dose Admin Hydrocodone Bitart/Acetaminophen 1 tab 01/23/20 21:31 01/27/20 11:12 V[place]inckel 10-325 Mg PO 1 tab Q6H PRN Administration Pain (Scale Score 4-6) Albuterol 2 puff 01/23/20 21:31 01/26/20 19:41 Proventil Hfa INHALATION 2 puff QID PRN Administration Shortness Of Breath Alprazolam 0.5 mg 01/24/20 19:06 01/27/20 11:55 Xanax PO 0.5 mg QID PRN Administration Anxiety Baclofen 20 mg 01/23/20 21:31 Lioresal Po PO TID PRN Spasms Clopidogrel Bisulfate 75 mg 01/23/20 21:00 01/25/20 20:25 Plavix PO 75 mg Q48H IVORY Administration Hydroxyzine HCl 25 mg 01/23/20 21:59 01/24/20 08:32 Atarax Tablet PO 25 mg Q8H PRN Administration Anxiety Magnesium Oxide 400 mg 01/27/20 17:00 Mag-Ox PO BID IVORY Pantoprazole Sodium 40 mg 01/24/20 21:50 01/27/20 08:49 Protonix PO 40 mg DAILY IVORY Administration Propranolol HCl 10 mg 01/23/20 21:35 01/27/20 08:49 Inderal PO 10 mg Q12HR IVORY Administration Spironolactone 100 mg 01/24/20 09:00 01/26/20 09:57 Aldactone PO 100 mg QAM IVORY Administration Radiology Results: ITS Impressions Chest CTA 01/23/20 13:58 IMPRESSION: 1. No pulmonary embolism. 2. Large right pleural
[2020-01-27 14:00] VITALS: BP 126/70; PULSE 80; RESP 21; TEMP 36.3; O2SAT 95
[2020-01-27] MEDS: MAGNESIUM SULFATE 3GM/D5W100ML 3 GM/100 ML BAG IVPB (14:03)
--- NOTE | 2020-01-27 15:35 | PM.DS ---
DS: Diagnosis Admitting Diagnosis Admitting Diagnosis: Pleural effusion, not elsewhere classified Discharge Diagnosis (1) Pleural effusion: Code(s): J90 - Pleural effusion, not elsewhere classified Status: Acute Assessment and Plan: Patient was having shortness of breath for a few weeks and was found to have a large right pleural effusion. She had a thoracentesis completed on 01/23/2020 that remove 1.3 L of fluid that appeared to be in nature. -->Thoracentesis labs showed red, hazy fluid with a pH of 7.213, elevated RBCs at 16,605, elevated nucleated cells at 15,54. Lymphocytes are elevated at 91% Glucose is 43, Total protein 3.6. We are still pending albumin, LDH, triglycerides of the pleural fluid. She had a 2nd thoracentesis on 01/25/2020 and removed 1 L of fluid and we have ordered a cytology and cell count on this fluid which is still pending. She had a 3rd thoracentesis on 01/27/2020 and removed more fluid ordered a cytology and cell count on this fluid which is still pending. I talked to Dr. Farris- air breaker operator states she is stable for discharge today after her third thoracentesis if she is feeling better. I called the patient's radiation oncologist Dr Monroe at [facility] who knows the patient but states she does not currently have an oncologist to follow up with. I called Dr. Pena Oncologist at [facility] who can get the patient in for evaluation on Wednesday 01/31 at 11:45 a.m.. Have at I wrong thing ever had a bile leak The patient understands and agrees with the plan for follow-up. The patient had a diagnosis of non-small cell lung cancer and she followed up with a thoracic surgeon that stated she was not a surgical candidate. At that time her nodule was a [id number] RLL nodule. The patient is feeling much better today and denies shortness of breath at rest or with exertion. She feels comfortable with discharge to see Oncologist Thursday and come back to ER if having worsening symptoms. (2) Respiratory failure: Code(s): J96.90 - Respiratory failure, unspecified, unspecified whether with hypoxia or hypercapnia Status: Acute Assessment and Plan: The patient was admitted and found to be hypoxic. She was placed on oxygen then after her thoracentesis she was taken off oxygen. She is not resting comfortably on room air with a pulse ox of 95%. She is feeling better after 3rd thoracentesis. (3) Cancer of right lung: Code(s): C34.91 - Malignant neoplasm of unspecified part of right bronchus or lung Status: Acute Assessment and Plan: Please see the notes from her oncologist's it looks like on 08/22/2019 from [facility]. According to the records that shows malignant neoplasm of the lower lobe right bronchus or lung. Malignant neoplasm of unspecified site of right female breast. Patient will need to follow-up with her oncologist. We have an appointment with Dr. Pena oncologist on Thursday02/01/2020 (4) Depression: Code(s): F32.9 - Major depressive disorder, single episode, unspecified Status: Chronic Assessment and Plan: Of serotonin syndrome in the past. I am not seeing where she is on any medication at this time. (5) Anxiety: Code(s): F41.9 - Anxiety disorder, unspecified Status: Acute Assessment and Plan: She is on hydroxyzine. Will also prescribe PRN Xanax incase she needs it upon discharge. (6) Essential hypertension: Code(s): I10 - Essential (primary) hypertension Status: Chronic Assessment and Plan: She is on propranolol and spironolactone. Blood pressure this morning was 126/70 Will continue with home medicatio
[2020-01-27 15:43] VITALS: BP 115/69; BP 133/79; PULSE 72; PULSE 78; RESP 20; O2SAT 91; O2SAT 97
[2020-01-27 19:40] LABS: Appearance Pleural Fluid Bloody (Clear); Color Pleural Fluid Red (Colorless)
[2020-01-27 19:41] LABS: Lymphocytes Pleural Fluid 69 %; Macrophages Pleural Fluid 2 %; Neutrophils Pleural Fluid 28 % (0-25)
[2020-01-27 19:43] LABS: Pleural fluid source Pleural fluid
[2020-01-30 13:15] LABS: NIL 0.02 IU/mL; Quantiferon TB Plus, 1T NEGATIVE (NEGATIVE)
[2020-01-31 00:08] LABS: Albumin Pleural Fluid 2.1 g/dL
--- NOTE | 2020-02-01 09:55 | PC.NURSE ---
Pleural fluid cx is negative
== END 2020-01-27 17:20 | disposition home or self-care (01) | DRG 186 ==
LOC: ANHED 16:51 → ANH2MED 18:02
PROVIDERS: Internal Medicine Critical Care Medicine; Nurse Practitioner; Physician Assistant; Admitting Provider Family Medicine; Emergency Provider Emergency Medicine; PCP Family Medicine; Visit Provider Internal Medicine
DX: J90 Pleural effusion, not elsewhere classified (principal); J96.20 Acute and chronic respiratory failure, unspecified whether with hypoxia or hypercapnia; C34.91 Malignant neoplasm of unspecified part of right bronchus or lung; C50.912 Malignant neoplasm of unspecified site of left female breast; J44.9 Chronic obstructive pulmonary disease, unspecified; Z99.81 Dependence on supplemental oxygen; F17.210 Nicotine dependence, cigarettes, uncomplicated; F32.9 Major depressive disorder, single episode, unspecified; F41.9 Anxiety disorder, unspecified; I10 Essential (primary) hypertension; E78.5 Hyperlipidemia, unspecified; K74.60 Unspecified cirrhosis of liver; Z79.899 Other long term (current) drug therapy; Z85.828 Personal history of other malignant neoplasm of skin; Z85.41 Personal history of malignant neoplasm of cervix uteri; Z86.19 Personal history of other infectious and parasitic diseases; Z92.21 Personal history of antineoplastic chemotherapy; Z92.3 Personal history of irradiation
CPT/HCPCS: 32555; 36415; 36600; 71045; 71046; 71275; 80048; 80053; 82042; 82375; 82728; 82805; 82945; 83050; 83605; 83615; 83735; 83986; 84132; 84157; 84443; 84478; 85025; 85027; 85380; 85610; 85730; 86140; 86430; 86480; 87070; 87075; 87205; 88104; 88108; 88184; 88185; 88305; 88313; 88342; 89051; 93005; 94640; 96374; 99285; A9270; J2930; J3475; Q9967